=== PATIENT | male | born 1950 | race Two or more races ===

== ENCOUNTER 2018-01-23 10:32 | Emergency (ER) | payer OTHER ==
[~2018-01-23] VITALS: Ht 175.3 cm; Wt 81.6 kg
[~2018-01-23 10:32] MED LIST: BENADRYL50 MG PO; ENALAPRIL MALEA10 MG; FOLIC ACID0.4 MG; MEDROL4 MG PO; OMEPRAZOLE20 MG PO; VASOTEC10 MG PO
[2018-01-23] MEDS ORDERED: ALBUTEROL2.5 MG/3 M IH (13:32)
== END 2018-01-23 14:11 | disposition home or self-care (01) ==
LOC: ER 10:32
DX: J98.01 Acute bronchospasm (principal)

== ENCOUNTER 2018-01-29 14:27 | Inpatient (IN) | payer OTHER ==
[~2018-01-29] VITALS: Ht 175.3 cm; Wt 78.5 kg
[~2018-01-29 14:27] MED LIST changes: +ALBUTEROL2.5 MG/3 M IH
== END 2018-02-08 09:12 | disposition home or self-care (01) | DRG 202 ==
LOC: MEDI 14:27
PROC: 3E0F7GC Introduction of Other Therapeutic Substance into Respiratory Tract, Via Natural or Artificial Opening (ICD-10-PCS; principal; 2018-01-29)
PROC: 4A033R1 Measurement of Arterial Saturation, Peripheral, Percutaneous Approach (ICD-10-PCS; 2018-01-29)
DX: J45.41 Moderate persistent asthma with (acute) exacerbation (principal); B37.0 Candidal stomatitis; E11.9 Type 2 diabetes mellitus without complications; I10 Essential (primary) hypertension; B96.5 Pseudomonas (aeruginosa) (mallei) (pseudomallei) as the cause of diseases classified elsewhere; L40.59 Other psoriatic arthropathy; M54.2 Cervicalgia; M62.830 Muscle spasm of back

== ENCOUNTER 2018-02-26 11:04 | Emergency (ER) | payer OTHER ==
[~2018-02-26] VITALS: Ht 175.3 cm; Wt 77.1 kg
[2018-02-26] MEDS ORDERED: ZOCOR5 MG (11:24)
[2018-02-26] MEDS ORDERED: GLIMEPIRIDE1 MG (11:24)
== END 2018-02-26 18:08 | disposition home or self-care (01) ==
LOC: ER 11:04
DX: J45.998 Other asthma (principal); E11.65 Type 2 diabetes mellitus with hyperglycemia; J11.1 Influenza due to unidentified influenza virus with other respiratory manifestations

== ENCOUNTER 2018-11-04 12:55 | Outpatient (CLI) | payer OTHER ==
[~2018-11-04 12:55] MED LIST changes: +GLIMEPIRIDE1 MG; +ZOCOR5 MG
== END 2018-11-04 17:31 | disposition home or self-care (01) ==
LOC: RAD 12:55
DX: J20.8 Acute bronchitis due to other specified organisms (principal)

== ENCOUNTER 2019-04-10 17:12 | Inpatient (IN) | payer OTHER ==
[~2019-04-10] VITALS: Ht 175.3 cm; Wt 69.9 kg
== END 2019-04-14 09:43 | disposition home or self-care (01) | DRG 192 ==
LOC: MEDJ 17:12
PROVIDERS: ADMIT Internal Medicine Cardiovascular Disease
PROC: 3E0F7GC Introduction of Other Therapeutic Substance into Respiratory Tract, Via Natural or Artificial Opening (ICD-10-PCS; principal; 2019-04-10)
PROC: 4A033R1 Measurement of Arterial Saturation, Peripheral, Percutaneous Approach (ICD-10-PCS; 2019-04-10)
DX: J44.1 Chronic obstructive pulmonary disease with (acute) exacerbation (principal); J20.9 Acute bronchitis, unspecified; J44.0 Chronic obstructive pulmonary disease with (acute) lower respiratory infection; J45.40 Moderate persistent asthma, uncomplicated; L40.59 Other psoriatic arthropathy; E11.9 Type 2 diabetes mellitus without complications; Z79.4 Long term (current) use of insulin

== ENCOUNTER 2019-05-14 12:11 | Inpatient (IN) | payer OTHER ==
[~2019-05-14] VITALS: Ht 175.3 cm; Wt 75.7 kg
[2019-05-14] MEDS ORDERED: PRILOSEC10 MG (12:39)
[2019-05-15] MEDS ORDERED: SIMVASTATIN5 MG PO (08:04)
== END 2019-05-19 08:26 | disposition home or self-care (01) | DRG 305 ==
LOC: ER 12:11 → MEDJ 17:35
PROVIDERS: ADMIT Internal Medicine Cardiovascular Disease
PROC: 4A12X4Z Monitoring of Cardiac Electrical Activity, External Approach (ICD-10-PCS; principal; 2019-05-14)
PROC: 3E0F7GC Introduction of Other Therapeutic Substance into Respiratory Tract, Via Natural or Artificial Opening (ICD-10-PCS; 2019-05-14)
PROC: B246ZZZ Ultrasonography of Right and Left Heart (ICD-10-PCS; 2019-05-14)
PROC: 4A02XM4 Measurement of Cardiac Total Activity, External Approach (ICD-10-PCS; 2019-05-15)
DX: I11.9 Hypertensive heart disease without heart failure (principal); I25.110 Atherosclerotic heart disease of native coronary artery with unstable angina pectoris; J45.901 Unspecified asthma with (acute) exacerbation; L40.59 Other psoriatic arthropathy; J44.9 Chronic obstructive pulmonary disease, unspecified; E11.9 Type 2 diabetes mellitus without complications; B96.89 Other specified bacterial agents as the cause of diseases classified elsewhere; B96.5 Pseudomonas (aeruginosa) (mallei) (pseudomallei) as the cause of diseases classified elsewhere

== ENCOUNTER 2019-09-11 07:53 | Emergency (ER) | payer OTHER ==
[~2019-09-11] VITALS: Ht 175.3 cm; Wt 77.1 kg
[~2019-09-11 07:53] MED LIST changes: +PRILOSEC10 MG; +SIMVASTATIN5 MG PO
== END 2019-09-11 15:56 | disposition home or self-care (01) ==
LOC: ER 07:53
DX: J45.998 Other asthma (principal)

== ENCOUNTER 2019-09-24 14:17 | Inpatient (IN) | payer OTHER ==
[~2019-09-24] VITALS: Ht 175.3 cm; Wt 77.1 kg
--- NOTE | 2019-09-24 14:35 | NUR ---
PACIENTE MASCULINO ALERTA Y ORIENTADO PRESENTANDO ASTHMA. AL MOMENTO CON RESPIRACIONES EN 19 Y SATURANDO 96%. SATURANDO 96%. Y
--- NOTE | 2019-09-24 16:09 | NUR ---
SE ORIENTA APT SOBRE TX REFIERE ENTENDER. SE LE COLECTAN MUESTRAS BAJO MEDIDAS ASEPTICAS, SE CANALIZA Y SE ADMINISTRAN MEDICAMENTOS MYLES PRESCRITOS PT TOLERA. SE NOTIFICA ABG A TERAPIA.
== END 2019-09-26 10:33 | disposition home or self-care (01) | DRG 191 ==
LOC: ER 14:17 → SEC-K 17:13 → MEDI 09-25 17:07
PROVIDERS: ADMIT Internal Medicine Cardiovascular Disease
PROC: 3E0F7GC Introduction of Other Therapeutic Substance into Respiratory Tract, Via Natural or Artificial Opening (ICD-10-PCS; principal; 2019-09-24)
PROC: 4A033R1 Measurement of Arterial Saturation, Peripheral, Percutaneous Approach (ICD-10-PCS; 2019-09-24)
DX: J44.1 Chronic obstructive pulmonary disease with (acute) exacerbation (principal); J45.41 Moderate persistent asthma with (acute) exacerbation; I20.0 Unstable angina; I11.9 Hypertensive heart disease without heart failure; E11.9 Type 2 diabetes mellitus without complications; Z79.4 Long term (current) use of insulin

== ENCOUNTER 2020-12-11 09:38 | Emergency (ER) | payer OTHER ==
[~2020-12-11] VITALS: Ht 175.3 cm; Wt 77.1 kg
== END 2020-12-11 14:11 | disposition home or self-care (01) ==
LOC: ER 09:38
DX: J45.998 Other asthma (principal); R06.02 Shortness of breath

== ENCOUNTER 2021-01-20 11:06 | Emergency (ER) | payer OTHER ==
[~2021-01-20] VITALS: Ht 175.3 cm; Wt 77.1 kg
[2021-01-20] MEDS ORDERED: VENTOLIN HFA18 GM IH (11:19)
== END 2021-01-20 14:50 | disposition home or self-care (01) ==
LOC: ER 11:06
DX: J45.901 Unspecified asthma with (acute) exacerbation (principal); J06.9 Acute upper respiratory infection, unspecified; Z03.818 Encounter for observation for suspected exposure to other biological agents ruled out

== ENCOUNTER 2021-06-07 15:33 | Emergency (ER) | payer OTHER ==
[~2021-06-07] VITALS: Ht 175.3 cm; Wt 77.1 kg
[~2021-06-07 15:33] MED LIST changes: +VENTOLIN HFA18 GM IH
== END 2021-06-08 | disposition left against medical advice (07) ==
LOC: ER 15:33
DX: Z53.20 Procedure and treatment not carried out because of patient's decision for unspecified reasons (principal)

== ENCOUNTER → 2021-07-27 07:20 | Outpatient (CLI) | payer OTHER | END | disposition home or self-care (01) | LOC: NUCLEAR 07:20 | PROVIDERS: ATTEND Internal Medicine Pulmonary Disease | DX: S22.31XA Fracture of one rib, right side, initial encounter for closed fracture (principal) | CPT/HCPCS: 78315; A9503 ==

== ENCOUNTER 2022-01-18 14:01 | Emergency (ER) | payer OTHER ==
[~2022-01-18] VITALS: Ht 175.3 cm; Wt 77.1 kg
[2022-01-18] MEDS ORDERED: METFORMIN HCL1000 M2 PO (14:15)
== END 2022-01-18 15:17 | disposition home or self-care (01) ==
LOC: ER 14:01
DX: J45.901 Unspecified asthma with (acute) exacerbation (principal); E11.9 Type 2 diabetes mellitus without complications; Z79.84 Long term (current) use of oral hypoglycemic drugs; I10 Essential (primary) hypertension

== ENCOUNTER 2023-06-20 09:33 | Outpatient (CLI) | payer OTHER ==
[~2023-06-20 09:33] MED LIST changes: +METFORMIN HCL1000 M2 PO
== END 2023-06-20 09:37 | disposition home or self-care (01) ==
LOC: RAD 09:33
PROVIDERS: ATTEND Internal Medicine Pulmonary Disease
DX: J45.20 Mild intermittent asthma, uncomplicated (principal)